=== PATIENT | female | born 1955 | race Two or more races ===

== ENCOUNTER → 2016-06-07 | Outpatient (CLI) | payer MEDICARE, OTHER ==
--- NOTE | ~2016-06-07 | MY11 ---
[facility] A Service of [facility] RADIOLOGY TEXT RESULTS PATIENT: REGINE LOPEZ LOCATION: [facility] : 55 UNIT #: [id number] AGE: [address]: GM MORELAND APRN SEX: F ORDER DR: [id number] [facility] [address] [place], [place] [address] [id number] O MR#: [id number] Acc #: [id number] NAME: REGINE LOPEZ : 1955 SEX: F STUDY DATE/TIME: 06/07/2016 10:16 UNIT: [facility] ROOM: STUDY DESCRIPTION: MY Mammogram Screening Dig Paul Attending Physician: Gm Moreland Referring Physician: Gm Moreland Ordering Physician: Sophie Moreland M.D. Primary Care Physician: Pedrito Carrillo M.D. MEDICAL IMAGING REPORT This report is preliminary unless electronic signature is present EXAM Bilateral digital screening mammogram with CAD, 06/07/2016. HISTORY: Screening, baseline mammogram FINDINGS The background breast parenchyma consists of scattered fibroglandular densities. No suspicious mass, microcalcification, architectural distortion. This is the patient's baseline mammogram. IMPRESSION Negative mammogram. BIRADS 1 Patients over the age of 40 are entered into a reminder system with target due date for the next mammogram. A result letter will also be sent to the patient. BIRADS: 1 - negative Recommendations: Annual screening mammogram. Dictated by... Marquis Nieto M.D. THIS IS AN ELECTRONICALLY VERIFIED REPORT Marquis Nieto M.D. at 06/07/2016 5:15 PM RADHA/boni TD: 06/07/2016 15:18 JOB #: [id number] MEDICAL IMAGING REPORT [facility] A Service of [facility] RADIOLOGY TEXT RESULTS PATIENT: REGINE LOPEZ LOCATION: [facility] : 55 UNIT #: [id number] AGE: [address]: GM MORELAND APRN SEX: F ORDER DR: Page 1 of 1 COPY
== END | disposition home or self-care (01) ==
LOC: CWCC 09:45
DX: Z12.31 Encounter for screening mammogram for malignant neoplasm of breast (principal)
CPT/HCPCS: G0202